=== PATIENT | male | born 1970 | race Caucasian/White ===

== ENCOUNTER → 2023-06-15 16:47 | Outpatient (REF) | payer OTHER, SELFPAY | LOC: RAD 16:47 | PROVIDERS: ATTENDING PHYSICIAN Chiropractor; FAMILY PHYSICIAN Family Medicine | DX: M99.01 Segmental and somatic dysfunction of cervical region (principal); M99.03 Segmental and somatic dysfunction of lumbar region; M99.07 Segmental and somatic dysfunction of upper extremity | CPT/HCPCS: 72050; 72110; 73030 ==

== ENCOUNTER 2023-11-30 20:55 | Emergency (ER) | payer OTHER, SELFPAY ==
[2023-11-30 20:56] VITALS: BP 131/85
--- NOTE | 2023-11-30 22:55 | ED.GENMED ---
History of Present Illness
General
Chief Complaint: Musculo-Skeletal Complaint
Source: patient
Exam Limitations: none
Time Seen by Provider: 11/30/23 21:45
Nursing documentation reviewed up to this point in time: agreed with
History of Present Illness
History of Present Illness:
53-year-old male presenting to the emergency department today with concerns of left ankle discomfort after getting tripped up and inverting his ankle. Difficulty walking since secondary to pain. Denies numbness weakness or additional injuries.
Past History
Past History
ED Past Medical History: Other (Chronic back pain)
ED Past Surgical History: None
Social History
Tobacco: Smoker
Alcohol: Occasional
Personal:
Living: with family
Employment: Employed
Review of Systems
Review of Systems
Allergies reviewed?: Yes
All Other Systems: ROS reviewed and negative except as documented in HPI and ROS
Phy Exam
Physical Exam
Physical Exam:
GENERAL: Alert , in no apparent distress
EYE: pupils equal and reactive
NECK: Supple, no significant adenopathy.
ENT: o/p clr, mmm.
CARDIAC: Regular rate and rhythm .
LUNGS: Clear breath sounds bilaterally, no acute respiratory distress, no wheezes/rales/rhonchi
ABDOMEN: Soft, without focal tenderness, no r/g, no cvat
NEUROLOGICAL: Alert and oriented, no focal neuro deficits
SKIN: Warm and dry, skin intact.
MUSCULOSKELETAL: Tenderness palpation to the anterior lateral malleolus discomfort to the posterior aspect of the lateral malleolus no tenderness throughout the foot over the base of the fifth metatarsal. Good range of motion and strength of the
ankle knee and toes otherwise. Normal distal cap refill dorsalis pedis and posterior tibialis pulses. No edema, well perfused.
PSYCH: Normal and appropriate interaction.
Course
Orders/Labs/Results
Orders:
Orders
11/30/23 20:58
CR Ankle - Left Min 3 Views Urgent
Comment:
Reason For Exam: L ankle pain, twisting injury.
11/30/23 22:55
Francois Wrap Left-Treatment ONCE
Crutches-Treatment ONCE
Vital Signs
Initial and Last Documented VS:
Initial Vital Signs
Temp Pulse Resp BP Pulse Ox
97.9 F 110 16 131/85 94
11/30/23 20:56 11/30/23 20:56 11/30/23 20:56 11/30/23 20:56 11/30/23 20:56
Last Documented Vital Signs
Temp Pulse Resp BP Pulse Ox
97.9 F 110 16 131/85 94
11/30/23 20:56 11/30/23 20:56 11/30/23 20:56 11/30/23 20:56 11/30/23 20:56
MDM/Problems Addressed
MDM/Problems Addressed:
53-year-old male presenting to the emergency department today with concerns of left-sided ankle discomfort after twisting his ankle prior to arrival. Here he has tenderness palpation to the anterior lateral malleolus. X-ray without signs of
fracture. Symptoms consist with ankle sprain. Plan for conservative treatment otherwise stable for discharge. Return precautions given.
*Critical Care Note
Total Time (30-74mins, 75-104mins- exclusive of procedures): Not Applicable
ED Attending Note
-
Portions of this chart may have been created with voice recognition software.� Occasional wrong word or��sound alike� substitutions may have occurred due to the inherent limitations of voice recognition software.
Discharge Plan
Departure
Patient Disposition: Home (Routine Discharge)
Date of Disposition: 11/30/23
Time of Disposition: 22:58
Patient with high blood pressure during this ER visit?: No
Condition: Good
Covid-19: Not Applicable
Discharge Problem:
Ankle sprain
Instructions: Ankle Sprain ED
Prescriptions:
No Action
naproxen sodium [Aleve] 220 MG tablet
220 mg PO PRN PRN (Reason: back pain)
gabapentin 300 MG capsule
300 mg PO TID
chlorzoxazone [Lorzone] 375 MG tablet
375 mg PO BID
buprenorphine-naloxone [Suboxone] 1 EACH film
1 ea sublingual BID
Patient Comments:
Was on 3 times a day but recently was cut down to BID
clonidine HCl 0.1 MG tablet
0.1 mg PO Q6HPRN PRN (Reason: withdraw symptoms) Qty: 12 0RF
tramadol 50 MG tablet
50 mg PO Q6HPRN PRN (Reason: withdraw symptoms) Qty: 12 0RF
ondansetron 4 MG tablet,disintegrating
4 mg PO TIDPRN PRN (Reason: nausea) Qty: 12 0RF
Referrals:
Dwayne Giles MD [Family Provider] -
Lalo Soni MD [Active] - Follow up in 5-7 days
Activity Restrictions/Additional Instructions:
You came to the emergency department today with concerns of ankle discomfort. You are found please rest ice compress and elevate and follow-up closely with orthopedics as needed. Department for any worsening, new or concerning symptoms.
Interventions
Interventions:
*General Assessment Last Done: 11/30/23 21:40
*Neglect/Abuse Screening Last Done: 11/30/23 21:40
*ED COVID-19 Vaccine History Last Done: 11/30/23 21:40
ED-Musculoskeletal Assessment Last Done: 11/30/23 21:40
Discharge Date and Time
Print Language: CHINESE
[2023-11-30 23:30] VITALS: BP 113/71
== END 2023-11-30 23:30 | disposition home or self-care (01) ==
LOC: EMR 20:55
PROVIDERS: EMERGENCY PHYSICIAN Emergency Medicine; FAMILY PHYSICIAN Family Medicine
DX: S93.402A Sprain of unspecified ligament of left ankle, initial encounter (principal); X50.1XXA Overexertion from prolonged static or awkward postures, initial encounter; F17.200 Nicotine dependence, unspecified, uncomplicated
CPT/HCPCS: 99283; 73610

== ENCOUNTER 2024-07-23 14:38 | Emergency (ER) | payer OTHER, SELFPAY ==
[2024-07-23 14:44] VITALS: BP 140/84
--- NOTE | 2024-07-23 15:59 | ED.MUSCINJ ---
HPI-Injury
General
Chief Complaint: Fall
Source: patient
Exam Limitations: none
Time Seen by Provider: 07/23/24 15:55
Nursing documentation reviewed up to this point in time: agreed with
History of Present Illness-Injury
Is this injury a work related problem?: No
Is pt an associate of [facility]Ideal?: No
Initial Injury comments:
Patient states he slipped and fell, landed on a rock. Injury to right posterior ribs. Incident occurred yesterday. States today he coughed and felt something move back there. Denies any SOB. No back or neck pain. brought self to ED for eval.
Past History
Past History
ED Past Medical History: Other (Chronic back pain)
ED Past Surgical History: None
Social History
Tobacco: Smoker
Alcohol: Occasional
Personal:
Living: with family
Employment: Employed
Review of Systems
Review of Systems
Allergies reviewed?: Yes
All Other Systems: ROS reviewed and negative except as documented in HPI and ROS
Constitutional: Reports no symptoms
EENT: Reports no symptoms
Respiratory: Reports no symptoms
Cardiac: Reports no symptoms
ABD/GI: Reports no symptoms
: Reports no symptoms
Musculoskeletal: Reports other (Pain to right posterior ribs)
Skin: Reports no symptoms
Neurological: Reports no symptoms
Psychiatric: Reports no symptoms
Musculoskeletal Injury Exam
Musculoskeletal Injury Exam
Right Posterior Ribs:
Pain with Movement?: Moderate
Tender to palpation?: Moderate
Soft tissue swelling?: None
External deformity and angulation?: None
Joint effusion?: None
Contusion?: Moderate
Hematoma-local bleeding into tissue?: None
Strain- Sprain- Tear (Connective tissue injury)?: None
Crepitus with movement?: No
Joint instability?: No
Malalignment/deformity?: No
Range of motion: Limited
Distal skin color and temperature: normal-warm & good color
Capillary Refill: normal
Normal distal neurovascular exam?: Yes
Phy Exam
General Physical Exam
General Presentation: mild distress
General age: appears stated age
General Skin: warm and dry
General Habitus: normal
General Mental: alert
Pulmonary Exam
Pulmonary Exam: lungs clear and no respiratory distress
Chest Wall: Right posterior: tenderness
Musculoskeletal Exam
Musculoskeletal Exam: neuro vasc intact
Skin Exam
Skin Exam: normal color, warm/dry and no rash
Psychiatric Exam
Psychiatric Exam: normal mood/affect
Injury Course
Orders/Labs/Results
Orders:
Orders
07/23/24 14:49
CR Ribs-right 3 Vw W/pa Chest* Urgent
Comment:
Reason For Exam: fall, posterior rib pain, 'feels something moving'
*Radiology
Radiology exam reviewed: radiology read reviewed
*Pulse Oximetry
Patient hypoxic: no
*Critical Care Note
Total Time (30-74mins, 75-104mins- exclusive of procedures): Not Applicable
Update Note
Update Note:
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 No bruising or swelling to site. XRay reviewed. No evidence of fracture, no pnuemothorax. VSS, no distress. Recommend ice, ibuprofen prn. He is discharged home
and will follow up with PCP
ED Attending Note
-
Portions of this chart may have been created with voice recognition software.� Occasional wrong word or��sound alike� substitutions may have occurred due to the inherent limitations of voice recognition software.
Discharge Plan
Departure
Patient Disposition: Home (Routine Discharge)
Date of Disposition: 07/23/24
Time of Disposition: 16:04
Patient with high blood pressure during this ER visit?: No
Condition: Good
Covid-19: Not Applicable
Discharge Problem:
Chest wall contusion
Instructions: Contusion (DC), Ibuprofen, Cold therapy for pain
Prescriptions:
No Action
naproxen sodium [Aleve] 220 MG tablet
220 mg PO PRN PRN (Reason: back pain)
gabapentin 300 MG capsule
300 mg PO TID
chlorzoxazone [Lorzone] 375 MG tablet
375 mg PO BID
buprenorphine-naloxone [Suboxone] 1 EACH film
1 ea sublingual BID
Patient Comments:
Was on 3 times a day but recently was cut down to BID
clonidine HCl 0.1 MG tablet
0.1 mg PO Q6HPRN PRN (Reason: withdraw symptoms) Qty: 12 0RF
tramadol 50 MG tablet
50 mg PO Q6HPRN PRN (Reason: withdraw symptoms) Qty: 12 0RF
ondansetron 4 MG tablet,disintegrating
4 mg PO TIDPRN PRN (Reason: nausea) Qty: 12 0RF
Activity Restrictions/Additional Instructions:
follow up with your family doctor.
Interventions
Interventions:
*Risk Screen - Suicide Last Done: 07/23/24 14:44
*General Assessment Last Done: 07/23/24 14:44
*Neglect/Abuse Screening Last Done: 07/23/24 14:44
Discharge Date and Time
Print Language: IVORIAN
== END 2024-07-23 16:22 | disposition home or self-care (01) ==
LOC: EMR 14:38
PROVIDERS: EMERGENCY PHYSICIAN Emergency Medicine; FAMILY PHYSICIAN Family Medicine
DX: S20.221A Contusion of right back wall of thorax, initial encounter (principal); W19.XXXA Unspecified fall, initial encounter; G89.29 Other chronic pain; M54.9 Dorsalgia, unspecified; F17.200 Nicotine dependence, unspecified, uncomplicated
CPT/HCPCS: 99283; 71101

== ENCOUNTER → 2024-08-04 15:50 | Outpatient (REF) | payer OTHER, SELFPAY | LOC: RAD 15:50 | PROVIDERS: ATTENDING PHYSICIAN Family Medicine | DX: S29.9XXA Unspecified injury of thorax, initial encounter (principal) | CPT/HCPCS: 71101 ==